=== PATIENT | male | born 1975 | race Caucasian/White ===

== ENCOUNTER 2021-01-05 13:01 | Emergency (ER) | payer MEDICAID, SELFPAY ==
[2021-01-05] VITALS (28 sets, daily range): BP systolic 169–198; BP diastolic 97–116; PULSE 78–99; RESP 10–21; TEMP 36.7–36.8; O2SAT 95–100
--- NOTE | 2021-01-05 13:15 | RT.EKG_ITS ---
APPROVED REPORT Exam: Resting ECG Reason for Exam: Fatigue, dizzy, HTN Patient Location: E HR:92 bpm ECG Measurements Heart Rate 92 AXIS NM 145 P 48 QRSd 98 QRS 34 QT 367 T -47 QTc 453 Conclusion Sinus rhythm...normal P axis, V-rate 60- 99 Probable left atrial enlargement...P >50mS, <-0.10mV V1 Nonspecific T abnormalities, inferior leads...T <-0.10mV, II III aVF. Sinus. No STEMI. I have reviewed and interpreted ECG and agree with software generated interpretation.
--- NOTE | 2021-01-05 13:29 | W.ED.GENAD ---
Discharge Plan Disposition Patient Disposition: HOME Condition: Stable Discharge Details Clinical Impression: Anxiety, High blood pressure Primary Care Provider: Anuj Coughlin ED Provider: Devora Maurer Home Meds and New Rx's Prescriptions: New lisinopril 10 mg tablet 10 mg PO DAILY Qty: 30 RF: 0 lorazepam [Ativan] 0.5 mg tablet 0.5 mg PO QHS PRN (Reason: anxiety) Qty: 3 RF: 0 No Action ascorbic acid (vitamin C) [Vitamin C] 1,000 mg Tablet 1,000 mg PO BID RF: 0 cholecalciferol (vitamin D3) [Vitamin D3] 125 mcg (5,000 unit) Tablet 5,000 unit PO DAILY RF: 0 Discharge Instructions Instructions: Hypertension (ED), Anxiety (ED) Additional Instructions: At this time cardiac work-up is largely within normal limits however your blood pressure has been running pretty high. Please take the lisinopril daily in the morning. Please have close follow-up with primary care provider. Follow up with primary care provider in 3-5 days. Return to ED sooner if any worsening or concerns. Increase oral fluids. Referrals: Anuj Coughlin [Primary Care Provider] - 5 days Discharge Data Discharge Date/Time-TO BE ENTERED AT DEPARTURE: 01/05/21 19:55 Medical Decision Making 45-year-old male presents to the ER with chief complaint of dizziness, fatigue, decreased appetite, and multiple complaints. He reports worsening over the last 3 weeks. He does have a history of high blood pressure and anxiety. He has been trying to manage his blood pressure at home naturally without medications. He denies fever chills, cough no nausea vomiting diarrhea. Patient took 0.5 mg of Xanax this morning. Patient does appear anxious upon initial examination. Blood pressure is 196/116 heart rate 99. He has no focal neuro deficits. Denies any tinnitus or headache. At this time work-up ordered including EKG, CBC, CMP, troponin, urinalysis. Serial troponins within normal limits, patient has remained hypertensive 194/106, 196/116 with a heart rate of 93. Other labs are largely with in normal limits. I will place patient on lisinopril 10 mg p.o. first dose here with strict follow-up with PCP. Discussed also with patient regarding follow-up with mental health services for possible counseling for the anxiety. Discussed plan with patient and family who verbalized understanding and are in agreement with the plan. EXAM: XR CHEST 2V PA LATERAL CLINICAL HISTORY: HTN, Dizziness TECHNIQUE: 2D digital imaging was performed. COMPARISON: No exams were available for comparison FINDINGS: The heart is not enlarged. The lungs are clear and well expanded. No pleural effusion seen. Mediastinal contours appear intact. IMPRESSION: Normal chest. Patient does have many questions prior to discharge. He is still somewhat hypertensive upon discharge. Prescription for lisinopril 10 mg daily given first dose here in the department. He is requesting some more anxiolytics prior to discharge. 0.5 mg of lorazepam given orally. Strongly encouraged to follow-up with primary care provider regarding blood pressure management and counseling for anxiety. Patient remained hemodynamically stable other than high blood pressure alert and oriented throughout stay. His systolic did drop from 196 to 169. This text was generated using [employer]ation system, please disregard any oddities of phrase or misspellings. HPI General Mode of arrival: ambulatory. Date/Time Provider Initiated Documentation: 01/05/21 13:17. Limitations to Documentation: no limitations. Information obtained by: patient and RN notes reviewed. HPI Narrative: 45-year-old male presents to the ER with chief complaint of dizziness, fatigue, decreased appetite, and multiple complaints. He reports worsening over the last 3 weeks. He does have a history of high blood pressure and anxiety. He has been trying to manage his blood pressure at home naturally without medications. He denies fever chills, cough no nausea vomiting diarrhea. Patient took 0.5 mg of Xanax this morning. Patient does appear anxious upon initial examination. Blood pressure is 196/116 heart rate 99. He has no focal neuro deficits. Denies any tinnitus or headache. Related Data Home Medications Medication Instructions Recorded Confirmed ascorbic acid (vitamin C) [Vitamin 1,000 mg PO BID 01/05/21 01/05/21 C] cholecalciferol (vitamin D3) 5,000 unit PO DAILY 01/05/21 01/05/21 [Vitamin D3] lisinopril 10 mg PO DAILY #30 tab 01/05/21 lorazepam [Ativan] 0.5 mg PO QHS PRN #3 tab 01/05/21 Previous Rx's Medication Instructions Recorded lisinopril 10 mg PO DAILY #30 tab 01/05/21 lorazepam [Ativan] 0.5 mg PO QHS PRN #3 tab 01/05/21 Allergies Allergy/AdvReac Type Severity Reaction Status Date / Time seasonal allergies Allergy Uncoded 01/05/21 13:23 General Stated Complaint: GenMedical TRACY: 3 Review of Systems All systems reviewed & are unremarkable except as noted in HPI and below ENT Ears, Nose, Mouth, and Throat: Reports dizziness Cardiovascular Cardiovascular: Reports as per HPI and Denies chest pain Neurologic Neurologic: Reports dizziness Psychiatric Psychiatric: Reports anxiety PENDING SALE TO [facility] Social History Smoking/Tobacco Use Status: Never Smoking risk assessment performed?: Yes Alcohol Intake: current Alcohol Intake frequency: holidays/special occasions only Substance use type: does not use Exam Narrative Exam Narrative: Constitutional: Alert and oriented x3. Appears stated age. Normal body habitus. Head: Normocephalic, no trauma. Eyes: Pupils PERRLA, Red reflex noted, EOM's intact. Eyelids symmetrical without lesions, discharge, or swelling. ENT: Bilateral TM's WNL, External ear normal to inspection, no mastoid TTP, swelling, or erythema, Nasal turbinates WNL, no nasal discharge. Normal dentition, Posterior pharynx WNL, no exudate. Chest: Normal S1, S2, distal pulses intact. BP initially elevated at 196/116. Resp: Lungs clear to auscultation bilaterally, no wheezes, rales, or rhonchi. Abdomen: Soft, nondistended nontender to palpation all 4 quadrants. Musculoskeletal: Normal gait, 5/5 strength to all four extremities. Skin: No suspicious rashes or lesions. Capillary refill less than 2 sec. Neurologic: Cranial nerves II-XII intact. Alert and oriented x 3. DTR's intact. Hematologic/Lymphatic: No ecchymosis, no lymphadenopathy. Course Vital Signs Vital signs: Vital Signs Temperature 36.7 C 01/05/21 13:18 Pulse 99 H 01/05/21 13:18 Respiratory Rate 16 01/05/21 13:18 Blood Pressure 196/116 H 01/05/21 13:18 Pulse Oximetry 100 01/05/21 13:18 Temperature 36.7 C 01/05/21 13:18 Temperature Source Skin 01/05/21 13:18 Pulse 99 H 01/05/21 13:18 Respiratory Rate 16 01/05/21 13:18 Respiratory Effort Non-Labored 01/05/21 13:18 Blood Pressure 196/116 H 01/05/21 13:18 Blood Pressure Position Sitting 01/05/21 13:18 Pulse Oximetry 100 01/05/21 13:18 Oxygen Delivery Method Room Air 01/05/21 13:18 Oxygen Flow Rate 0 01/05/21 13:18 Pain Level 0 01/05/21 13:18
--- NOTE | 2021-01-05 13:30 | DI.RAD_ITS ---
Exam(s) XR CHEST 2V PA LATERAL EXAM: XR CHEST 2V PA LATERAL CLINICAL HISTORY: HTN, Dizziness TECHNIQUE: 2D digital imaging was performed. COMPARISON: No exams were available for comparison FINDINGS: The heart is not enlarged. The lungs are clear and well expanded. No pleural effusion seen. Mediastin al contours appear intact. IMPRESSION: Normal chest. RADIATION DOSE DELIVERED: Total DLP
[2021-01-05] MEDS: LORazepam 2 MG/ML VIAL 1 MG IVP (14:03)
[2021-01-05 14:08] LABS: Abs Immature Grans 0.02 10^3/uL (0.0-0.06); Absolute Basophil Count 0.05 10^3/uL (0.0-0.2); Absolute Eosinophil Count 0.01 10^3/uL (0.0-0.7); Absolute Lymphocyte Count 1.44 10^3/uL (1.2-3.4); Absolute Monocyte Count 0.49 10^3/uL (0.1-0.8); Absolute Neutrophil Count 5.86 10^3/uL (1.2-6.7); Basophils % 0.6; Eosinophils % 0.1; HCT 49.3 % (40.0-50.0); HGB 16.9 g/dL (13.5-17.5); Immature Grans % 0.3; Lymphocytes % 18.3; MCH 30.7 pg (27.0-33.0); MCHC 34.3 % (32.0-36.0); MCV 89.6 fL (80-95); MPV 9.8 fL (8.0-11.0); Monocytes % 6.2; Neutrophils % 74.5; Nucleated RBC 0 %; Platelet Count 313 10^3/uL (130-400); RDW 11.8 % (11.8-14.1); RDW-SD 38.3 fL; WBC 7.87 10^3/uL (4.4-10.8)
[2021-01-05 14:16] LABS: Magnesium 2.3 mg/dL (1.8-2.4)
[2021-01-05 14:23] LABS: ALT 50 U/L (16-63); AST 22 U/L (15-37); Albumin 4.9 g/dL (3.4-5.0); Alkaline Phosphatase 83 U/L (46-116); Anion Gap 11.5 mmol/L (3-11); BUN 11 mg/dL (7-18); Bilirubin, Total 0.6 mg/dL (0.2-1.0); CO2 27.5 mmol/L (21.0-32.0); Calcium 9.6 mg/dL (8.5-10.1); Chloride 101 mmol/L (98-107); Glucose 124 mg/dL (74-106); Potassium 3.2 mmol/L (3.5-5.1); Sodium 140 mmol/L (136-145); Total Protein 9.2 g/dL (6.4-8.2); Troponin I < 0.05 ng/mL (<0.06)
[2021-01-05 15:57] LABS: Bilirubin Negative (Negative); Blood Negative (Negative); Clarity Clear (Clear); Glucose Negative (Negative); Ketones >=160 mg/dL (Negative); Leukocyte Esterase Negative (Negative); Nitrite Negative (Negative); Specific Gravity 1.015 (1.005-1.025); Urobilinogen 0.2 EU/dL (Up TO 0.2); pH 5.5 (5-8)
[2021-01-05 17:25] LABS: Troponin I < 0.05 ng/mL (<0.06)
[2021-01-05] MEDS: Lisinopril 10 MG TAB PO (17:31)
[2021-01-05] MEDS: LORazepam 0.5 MG TAB PO (19:46)
== END 2021-01-05 19:55 | disposition home or self-care (01) ==
PROVIDERS: Emergency Provider Registered Nurse Emergency; PCP Family Medicine Adult Medicine
DX: R42 Dizziness and giddiness (principal); R53.83 Other fatigue; F41.9 Anxiety disorder, unspecified; I10 Essential (primary) hypertension
CPT/HCPCS: 36415; 80053; 93005; 96374; 99284; 71046; 81003; 83735; 84484; 85025; 93010; J2060

== ENCOUNTER 2024-08-14 00:51 | Emergency (ER) | payer MEDICAID, SELFPAY ==
[2024-08-14 00:54] VITALS: BP 164/98; PULSE 74; RESP 18; TEMP 35.9; O2SAT 99
[2024-08-14] MEDS: diazePAM 10 MG/2 ML SYR 5 MG IVP (01:01)
[2024-08-14] MEDS: Lactated Ringers 1,000 ML 1000 ML IV (01:02)
[2024-08-14 01:14] LABS: Lactate 0.9 mmol/L (<or=2.0)
[2024-08-14] MEDS: Ondansetron 4 MG/2 ML VIAL IVP (01:14)
[2024-08-14 01:18] LABS: Abs Immature Grans 0.02 10^3/uL (0.0-0.06); Absolute Basophil Count 0.05 10^3/uL (0.0-0.2); Absolute Eosinophil Count 0.15 10^3/uL (0.0-0.7); Absolute Lymphocyte Count 2.83 10^3/uL (1.2-3.4); Absolute Monocyte Count 0.65 10^3/uL (0.1-0.8); Absolute Neutrophil Count 4.76 10^3/uL (1.2-6.7); Basophils % 0.6 %; Eosinophils % 1.8 %; HCT 45.3 % (40.0-50.0); HGB 15.4 g/dL (13.5-17.5); Immature Grans % 0.2 %; Lymphocytes % 33.5 %; MCH 31.5 pg (27.0-33.0); MCV 93 fL (80-95); MPV 9.2 fL (8.0-11.0); Monocytes % 7.7 %; Neutrophils % 56.2 %; Platelet Count 252 10^3/uL (130-400); RBC 4.89 10^6/uL (4.36-5.78); RDW 11.9 % (11.8-14.1); RDW-SD 40.9 fL; WBC 8.46 10^3/uL (4.4-10.8)
[2024-08-14 01:29] LABS: Lipase 30 U/L (<78)
[2024-08-14 01:40] LABS: ALT 23 U/L (16-63); AST 16 U/L (15-37); Albumin 4.3 g/dL (3.4-5.0); Alkaline Phosphatase 60 U/L (46-116); Anion Gap 11.6 mmol/L (3-11); BUN 14 mg/dL (7-18); Bilirubin, Total 0.5 mg/dL (0.2-1.0); CO2 28.4 mmol/L (21.0-32.0); CREATININE 0.9 mg/dL (0.70-1.30); Calcium 9.8 mg/dL (8.5-10.1); Chloride 101 mmol/L (98-107); Estimated GFR 106.67 (mL/min/1.73m2); Glucose 121 mg/dL (74-106); Potassium 3.3 mmol/L (3.5-5.1); Sodium 141 mmol/L (136-145); Total Protein 8.3 g/dL (6.4-8.2)
--- NOTE | 2024-08-14 01:43 | ED.GENADUL_ITS ---
Discharge Plan Disposition Patient Disposition: Home Condition: Good Discharge Details Clinical Impression: Abdominal pain, Diverticulosis Primary Care Provider: Ailin Elliott ED Provider: Alex Coughlin Home Meds and New Rx's Prescriptions: New docusate sodium [Colace] 100 mg capsule 100 mg PO BID Qty: 60 0RF No Action ascorbic acid (vitamin C) [Vitamin C] 1,000 mg Tablet 1,000 mg PO BID cholecalciferol (vitamin D3) [Vitamin D3] 125 mcg (5,000 unit) Tablet 5,000 unit PO DAILY lisinopril 10 mg tablet 10 mg PO DAILY Qty: 30 0RF lorazepam [Ativan] 0.5 mg tablet 0.5 mg PO QHS PRN (Reason: anxiety) Qty: 3 0RF Discharge Instructions Instructions: Diverticulosis (DC) Additional Instructions: At this time your laboratory workup has returned very reassuring and normal. Your potassium was slightly low but we have corrected this. As we discussed together you have notable diverticulosis on your CAT scan but no evidence of diverticulitis. Please stick with a high-fiber diet, take 50 mg Colace twice daily with 3 cups of water each time. Please take Tums before and after each meal. Please continue this for the next 2 weeks. If you still have persistent pain and symptoms after this conservative therapy then you may require further medication management. Continue taking your probiotic, and your GI supplements. Avoid significant red meat products and extremely greasy foods. Try to stick with a high-fiber diet. Additionally please follow-up closely with the surgeon Dr. Dixon for potential EGD and colonoscopy. We have placed a referral with him. His office will contact you for an appointment time. If you notice any worsening of your symptoms, or any new symptoms such as vomiting, diarrhea, fever, chills, shortness of breath, chest pain, numbness, weakness, or fainting , please return immediately to the emergency department for reevaluation. Please follow up with your primary care provider as soon as possible for reassessment and reevaluation. As always, it was a pleasure participating in your medical care today. Referrals: Ailin Elliott [Primary Care Provider] - Juan Dixon MD [ [facility] STAFF PHYSICIAN] - [facility] General Date/Time Provider Initiated Documentation: 08/14/24 00:53 . HPI Narrative: This is a very pleasant 48-year-old male with a past medical history of hypertension, as well as hospital associated anxiety, who presents today for evaluation of abdominal pain. Patient states that for the last few weeks to months he has had intermittent achy pain throughout the abdomen. Comes and goes, no particular aggravating or relieving factors. It transitions from his left upper to left lower to right upper and right lower quadrants. He denies any vomiting. Sometimes there is a achy and stabbing component as well. He denies any vomiting, diarrhea, or dysuria. No hematuria. Patient does take small amount of apple cider vinegar daily which has helped in the past but has not been helping recently. He denies any burning or gnawing sensation in the left upper quadrant. He denies any sharp stabbing pain in the right upper quadrant to the scapula, he denies any pulsatile tearing pain in the chest or abdomen. He denies any chest discomfort. No previous abdominal surgeries. No history of autoimmune components. From a dietary perspective he has significantly cut down on red meats. He tries to stick with more fruits and vegetables at this time. He denies any excessive spicy food intake. He has not had a colonoscopy before. In addition to this, patient does note extreme apprehension with being in the hospital at this time. Related Data Home Medications ?Medication ?Instructions ?Recorded ?Confirmed ascorbic acid (vitamin C) 1,000 mg 1,000 mg PO BID 01/05/21 08/14/24 tablet (Vitamin C) cholecalciferol (vitamin D3) 125 5,000 unit PO DAILY 01/05/21 08/14/24 mcg (5,000 unit) tablet (Vitamin D3) lisinopril 10 mg tablet 10 mg PO DAILY #30 tabs 01/05/21 08/14/24 lorazepam 0.5 mg tablet (Ativan) 0.5 mg PO QHS PRN anxiety #3 tabs 01/05/21 08/14/24 docusate sodium 100 mg capsule 100 mg PO BID #60 caps 08/14/24 (Colace) Previous Rx's ?Medication ?Instructions ?Recorded lisinopril 10 mg tablet 10 mg PO DAILY #30 tabs 01/05/21 lorazepam 0.5 mg tablet (Ativan) 0.5 mg PO QHS PRN anxiety #3 tabs 01/05/21 docusate sodium 100 mg capsule 100 mg PO BID #60 caps 08/14/24 (Colace) Allergies Allergy/AdvReac Type Severity Reaction Status Date / Time seasonal allergies Allergy Unknown Uncoded 08/14/24 00:58 General Stated Complaint: Abd Prob TRACY: 3 Exam Narrative Exam Narrative: 1.Const: Well-nourished, Well-developed, appearing stated age 2.Eyes: PERRL, no conjunctival injection, and symmetrical lids. 3.ENT: Atraumatic external nose and ears. Notably dry MM. Neck: Symmetric, trachea midline, No thyromegaly. 4.CVS: +S1/S2, Peripheral pulses 2+ and equal in all extremities. Brisk capillary refill in all extremities. 5.RESP: Unlabored respiratory effort. Clear to auscultation bilaterally. No wheezes rales or rhonchi 6.GI: Soft, Nontender/Nondistended, No hepatosplenomegaly. No guarding or rebound. No pain at McBurney's point. Negative Starr sign 7.MSK: Normocephalic/Atraumatic, Extremities w/o deformity or ttp No cyanosis or clubbing, Normal movement of all extremities 8.Skin: Warm, Dry. No rashes or lesions. 9.Neuro: records management engineer II-XII grossly intact. Sensation grossly intact, no focal neurologic deficits. 10.Psych: (AAO) x3. Appropriate mood and affect Course Vital Signs Vital signs: Vital Signs Temperature 35.9 C L 08/14/24 00:54 Pulse 74 08/14/24 00:54 Respiratory Rate 18 08/14/24 00:54 Blood Pressure 164/98 H 08/14/24 00:54 Pulse Oximetry 99 08/14/24 00:54 Temperature 35.9 C L 08/14/24 00:54 Temperature Source Tympanic 08/14/24 00:54 Pulse 74 08/14/24 00:54 Respiratory Rate 18 08/14/24 00:54 Blood Pressure 164/98 H 08/14/24 00:54 Blood Pressure Position Sitting 08/14/24 00:54 Pulse Oximetry 99 08/14/24 00:54 Oxygen Delivery Method Room Air 08/14/24 00:54 Oxygen Flow Rate 0 08/14/24 00:54 Lab/Test Results Lab/Test Results: Laboratory Tests Range/Units 04/28/25 01:10 WBC (4.4-10.8) 10^3/uL 8.46 RBC (4.36-5.78) 10^6/uL 4.89 Hgb (13.5-17.5) g/dL 15.4 Hct (40.0-50.0) % 45.3 MCV (80-95) fL 93 MCH (27.0-33.0) pg 31.5 MCHC (32.0-36.0) % 34.0 RDW (11.8-14.1) % 11.9 Plt Count (130-400) 10^3/uL 252 MPV (8.0-11.0) fL 9.2 Immature Gran % % 0.2 Neutrophils % % 56.2 Lymphocytes % % 33.5 Monocytes % % 7.7 Eosinophils % % 1.8 Basophils % % 0.6 Nucleated RBC % (0.0-0.3) % 0.0 Absolute Neutrophils (1.2-6.7) 10^3/uL 4.76 Absolute Lymphocytes (1.2-3.4) 10^3/uL 2.83 Absolute Monocytes (0.1-0.8) 10^3/uL 0.65 Absolute Eosinophils (0.0-0.7) 10^3/uL 0.15 Absolute Basophils (0.0-0.2) 10^3/uL 0.05 VBG Lactate (<or=2.0) mmol/L 0.9 Lipase (<78) U/L 30 Medical Decision Making This is a very pleasant 48-year-old male with a past medical history of hypertension, as well as hospital associated anxiety, who presents today for evaluation of abdominal pain. Patient states that for the last few weeks to months he has had intermittent achy pain throughout the abdomen. Comes and goes, no particular aggravating or relieving factors. It transitions from his left upper to left lower to right upper and right lower quadrants. He denies any vomiting. Sometimes there is a achy and stabbing component as well. He denies any vomiting, diarrhea, or dysuria. No hematuria. Patient does take small amount of apple cider vinegar daily which has helped in the past but has not been helping recently. He denies any burning or gnawing sensation in the left upper quadrant. He denies any sharp stabbing pain in the right upper quadrant to the scapula, he denies any pulsatile tearing pain in the chest or abdomen. He denies any chest discomfort. No previous abdominal surgeries. No history of autoimmune components. From a dietary perspective he has significantly cut down on red meats. He tries to stick with more fruits and vegetables at this time. He denies any excessive spicy food intake. He has not had a colonoscopy before. In addition to this, patient does note extreme apprehension with being in the hospital at this time. Physical exam demonstrates nontender nonsurgical abdomen. No guarding or rebound. No evidence of pulsatile component in the abdomen. No pain at McBurney's point, negative Starr sign. With the longevity of the symptoms, the atypical oscillating component, differential includes gastric ulcer, constipation, colitis or diverticulitis. Discussed with the patient imaging, laboratory evaluation. Patient was quite anxious with the current clinical scenario that he was in, I feel that a small dose of Valium is indicated in this scenario to help reduce the patient's current anxiety levels. He has no chest pain or shortness of breath to suggest cardiac etiology. No pleuritic chest pain to suggest PE. Will rehydrate, get CT imaging and labs, check urine for signs of stone or blood or infection, monitor closely and reassess. 3:23 AM Laboratory workup shows no white count or bandemia. Patient does have his minimally low potassium at 3.3. Lipase normal, transaminases and bilirubin are normal. CT imaging shows evidence of a normal appendix, notable diverticulosis without evidence of diverticulitis. No appendicitis, or other acute pathology. Does have a fair amount of stool burden present. Suspect that the high level stool burden, the diverticulosis, are potential causative agents to the p atient's symptomatology. However, there is concern that there could be a gastric ulcer or mild gastritis that could also be a component of the symptomatology. Will recommend Tums with every meal, high-fiber diet, Colace twice daily, and plenty of fluids. If symptoms still persist after a week or 2 of conservative therapy like this then the patient may need further therapy with home antacids. With the patient's potassium is slightly low, he was given 10 mEq of IV potassium and 40 mEq of oral oral potassium. Patient tolerated this well. Patient otherwise feels stable and would like to go home. Patient will be discharged. Discussed red flags for which to return. I have extensively reviewed the treatment plan and discharge instructions with the patient. I have addressed all patient concerns at this time. The patient was made aware of what symptoms to monitor for that would warrant a return to the emergency department. Discussed the plan with the patient, they demonstrate verbal understanding and agreement with our assessment and plan at this time. The documentation in this chart was dictated using [employer] dictation software. Please excuse any dictation errors. FINDINGS: Lungs: Lung bases are clear. Liver: The liver has a normal appearance. Gallbladder and biliary ducts: The gallbladder is unremarkable. No biliary ductal dilatation. Pancreas: The pancreas demonstrates normal size. No pancreatic ductal dilatation. Spleen: The spleen demonstrates normal size. Adrenal glands: The adrenal glands have a normal appearance. Kidneys and ureters: The kidneys are normal in size. No nephrolithiasis or hydronephrosis. No hydroureter or ureterolithiasis. Stomach and bowel: The bowel demonstrates overall normal caliber and wall thickness. There are extensive diverticular outpouchings throughout the sigmoid colon. No mucosal thickening or pericolonic fat stranding. Appendix: The appendix is thin walled and gas filled. Intraperitoneal space: Unremarkable. No free air. No significant fluid collection. Vasculature: There are scattered atheromatous calcifications throughout the aorta and iliac arteries. Lymph nodes: Unremarkable. No enlarged lymph nodes. Urinary bladder: Unremarkable as visualized. Reproductive: Unremarkable as visualized. Bones/joints: Unremarkable. No acute fracture. Soft tissues: Unremarkable. IMPRESSION: 1. Normal appendix. 2. Diverticulosis. No acute diverticulitis. 3. No suspicious intra-abdominal mass lesions. Thank you for allowing us to participate in the care of your patient. Dictated and Authenticated by: Justine Salinas MD 08/14/2024 2:02 AM Eastern Time ([place] & [place]) Quality:SDOH Health Related Social Needs: No Data to Display PFSH All Active Problems (Updated 08/14/24 @ 03:28 by Alex Coughlin DO) Diverticulosis (Acute) Abdominal pain (Acute) High blood pressure (Chronic) Anxiety (Chronic) Social History (System 01/08/21 @ 14:34 by Stephanie Rojas) Smoking/Tobacco Use Status: Never Smoking risk assessment performed?: Yes Alcohol Intake: current Alcohol Intake frequency: holidays/special occasions only Substance use type: does not use
--- NOTE | 2024-08-14 01:49 | DI.CT_ITS ---
Exam(s) CT ABDOMEN PELVIS W EXAM: CT ABDOMEN PELVIS W CLINICAL HISTORY: generalized abdominal pain, eval for mass/colitis. TECHNIQUE: Imaging Protocol: Axial computed tomography images with coronal and sagittal reformatted images were created and reviewed CONTRAST MATERIAL: Intravenous: Omnipaque 350 Contrast volume:75 ml Oral: no COMPARISON: No exams were available for comparison FINDINGS: ABDOMEN and PELVIS: Lung Bases: No acute findings. Liver: Mild hepatic steatosis. No suspicious mass. Gallbladder and biliary tract: No radiodense calculus. No wall thickening or pericholecystic fluid. No biliary dilation. Pancreas: Normal density. No abnormal calcifications or inflammatory process. No evidence of mass. Spleen: Normal. Kidneys: Normal size, contour and axis. No radiodense stones. No obstructive uropathy. No suspicious masses seen. Adrenal glands: No masses seen. Vasculature: Abdominal aorta non-dilated. Soft tissues: Small fat containing umbilical hernia. Bladder: No gross wall thickening. No calculi.No focal mass. Bowel: No obstruction. No bowel wall thickening. Appendix normal. Diverticulosis of the descending and sigmoid colon. No evidence of diverticulitis. Normal quantity of stool. No visible mass. Peritoneal cavity: No ascites. No focal collection. No mesenteric inflammatory response. No free air . Bones: Unremarkable for age. Reproductive organs: Unremarkable. Lymph nodes: No pathologically enlarged lymph nodes. IMPRESSION:: No acute abnormality in the abdomen or pelvis. Diverticulosis. No evidence of diverticulitis. RADIATION DOSE DELIVERED: 459.41mGy.cm Total DLP DATA REPOSITORY: All CT scans at this facility are submitted to the National Radiology Data Registry (NRDR) Dose Index Registry (DIR) with the [employer] (A[employer]). RADIATION OPTIMIZATION: All CT scans at this facility use at least one of these dose optimization te chniques: automated exposure control; mA and/or kV adjustment per patient size (includes targeted exa ms where dose is matched to clinical indication); or iterative reconstruction.
[2024-08-14] MEDS: Omnipaque 350 MG/ML 100 ML BTL 75 ML IJ (01:51)
[2024-08-14] MEDS: Normal Saline - Diluent 50 ML VIAL IJ (01:52)
--- NOTE | 2024-08-14 02:02 | DI.VRAD_ITS ---
PROCEDURE INFORMATION: Exam: CT Abdomen And Pelvis With Contrast Exam date and time: 08/14/2024 1:23 AM Age: 48 years old Clinical indication: Abdominal pain; Generalized; Eval for mass/colitits TECHNIQUE: Imaging protocol: Computed tomography of the abdomen and pelvis with contrast. Radiation optimization: All CT scans at this facility use at least one of these dose optimization techniques: automated exposure control; mA and/or kV adjustment per patient size (includes targeted exams where dose is matched to clinical indication); or iterative reconstruction. Contrast material: [id number]; Contrast volume: 75 ml; Contrast route: INTRAVENOUS (IV); COMPARISON: CR XR CHEST 2V PA LATERAL 01/05/2021 3:09 PM FINDINGS: Lungs: Lung bases are clear. Liver: The liver has a normal appearance. Gallbladder and biliary ducts: The gallbladder is unremarkable. No biliary ductal dilatation. Pancreas: The pancreas demonstrates normal size. No pancreatic ductal dilatation. Spleen: The spleen demonstrates normal size. Adrenal glands: The adrenal glands have a normal appearance. Kidneys and ureters: The kidneys are normal in size. No nephrolithiasis or hydronephrosis. No hydroureter or ureterolithiasis. Stomach and bowel: The bowel demonstrates overall normal caliber and wall thickness. There are extensive diverticular outpouchings throughout the sigmoid colon. No mucosal thickening or pericolonic fat stranding. Appendix: The appendix is thin walled and gas filled. Intraperitoneal space: Unremarkable. No free air. No significant fluid collection. Vasculature: There are scattered atheromatous calcifications throughout the aorta and iliac arteries. Lymph nodes: Unremarkable. No enlarged lymph nodes. Urinary bladder: Unremarkable as visualized. Reproductive: Unremarkable as visualized. Bones/joints: Unremarkable. No acute fracture. Soft tissues: Unremarkable. IMPRESSION: 1. Normal appendix. 2. Diverticulosis. No acute diverticulitis. 3. No suspicious intra-abdominal mass lesions. Dictated and Authenticated by: Justine Salinas MD. Orderin Madyson Johnson MD
[2024-08-14] MEDS: Potassium Chloride 20 MEQ TABCR 40 MEQ PO (02:24)
[2024-08-14] MEDS: POTASSIUM CHLORIDE 10 MEQ/100 ML BAG 100 MEQ IV_INF (02:31)
[2024-08-14] MEDS: Normal Saline 1,000 ML 1000 ML IV (02:31)
[2024-08-14 03:21] VITALS: BP 139/89; PULSE 62; RESP 16; O2SAT 99
== END 2024-08-14 03:59 | disposition home or self-care (01) ==
PROVIDERS: Emergency Provider Student in an Organized Health Care Education/Training Program; PCP General Practice
DX: K57.30 Diverticulosis of large intestine without perforation or abscess without bleeding (principal); E87.6 Hypokalemia; I10 Essential (primary) hypertension
CPT/HCPCS: 80053; 83690; 96361; 96365; 96375; 99285; 74177; 83605; 85025; J2405; J3360; J3480; J3490